=== PATIENT | female | born 1950 | race Caucasian/White ===

== ENCOUNTER 2019-05-25 23:55 | Outpatient (CLI) | payer MEDICARE | END 2019-05-25 23:56 | disposition critical access hospital (66) | LOC: EMS 23:55 | PROVIDERS: ATTEND Surgery | DX: R07.89 Other chest pain (principal); R06.00 Dyspnea, unspecified; R11.0 Nausea | CPT/HCPCS: A0425; A0427 ==

== ENCOUNTER 2019-05-26 00:01 | Observation (INO) | payer MEDICARE ==
--- NOTE | 2019-05-26 00:20 | ED Physician Documentation ---
History of Present Illness - Stated complaint Stated Complaint: CP, NAUSEA - Chief complaint Chief Complaint: Cardiac - Additonal information Additional information: This is a 68-year-old female with a history of atrial fibrillation, HF with unknown EF (She thinks it is poor, she has been told that she needs a defibrillator), pulmonary emboli on Xarelto, who presents with chest pain and shortness of breath. This began in the last day and has been worsening since then. The chest pain is central and achy, it is currently moderate in severity. Her shortness of breath is constant and worse with movement or walking. She always have some shortness of breath, however this is been worsening over the past week Pt states she has been taking her xarelto as prescribed without missing doses. She denies leg swelling. She states that she has never had leg swelling with her heart failure in the past. She is on furosemide 20 mg twice daily and has been taking this reliably. She denies any history of PCI, has had a catheterization at [facility] in [place] around 1 year ago, she is unsure of the results of this. Review of Systems Constitutional: denies: Fever Eyes: denies: Loss of vision Cardiac: reports: Chest pain / pressure Respiratory: reports: Dyspnea GI: denies: Abdominal Pain : denies: Dysuria Skin: denies: Rash Musculoskeletal: denies: Extremity swelling Neurologic: denies: Confused PD PAST MEDICAL HISTORY - Past Medical History Past Medical History: Yes Cardiovascular: Congestive heart failure, Atrial fibrillation Respiratory: Other Other Past Medical History: Hx Lung Clots - Past Surgical History Past Surgical History: Yes General: Cholecystectomy Ortho: Spine surgery - Present Medications Home Medications: Ambulatory Orders Medication Instructions Recorded Confirmed Esomeprazole Magnesium [Nexium 20 mg PO DAILY 05/26/19 05/26/19 24Hr] Furosemide [Lasix] 20 mg PO BID 05/26/19 05/26/19 Losartan [Cozaar] 50 mg PO DAILY 05/26/19 05/26/19 Omeprazole Magnesium [Prilosec] 10 mg PO DAILY 05/26/19 05/26/19 RX: Benzonatate 200 mg PO TID 05/26/19 05/26/19 RX: Carvedilol 3.125 mg PO DAILY 05/26/19 05/26/19 RX: Citalopram [CeleXA] 10 mg PO DAILY 05/26/19 05/26/19 RX: Cyclobenzaprine [Flexeril] 10 mg PO DAILY 05/26/19 05/26/19 RX: Ferrous Sulfate 325 mg PO DAILY 05/26/19 05/26/19 RX: Levothyroxine [Synthroid] 125 mg PO DAILY 05/26/19 05/26/19 RX: Spironolactone 25 mg PO DAILY 05/26/19 05/26/19 Rivaroxaban [Xarelto] 20 mg PO DAILY 05/26/19 05/26/19 - Allergies Allergies/Adverse Reactions: Allergies Allergy/AdvReac Type Severity Reaction Status Date / Time No Known Drug Allergies Allergy Verified 05/26/19 00:04 - Social History Does the pt smoke?: No Smoking Status: Never smoker Does the pt drink ETOH?: No Does the pt have substance abuse?: No - Immunizations Immunizations are current?: Yes - POLST Patient has POLST: No PD ED PE NORMAL - Vitals Vital signs reviewed: Yes - General General: Alert and oriented X 3 - HEENT HEENT: Atraumatic, PERRL - Neck Neck: Supple, no meningeal sign - Cardiac Cardiac: RRR (With some irregular beats, PVCs on the monitor) - Respiratory Respiratory: No respiratory distress, Other (Slight end-expiratory wheeze bilaterally.) - Abdomen Abdomen: Normal bowel sounds, Soft, Non tender, Non distended - Derm Derm: Warm and dry - Extremities Extremities: No deformity, Other (No pitting edema) - Neuro Neuro: Alert and oriented X 3, 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, No motor deficit, No sensory deficit, Normal speech - Psych Psych: Normal mood, Normal affect Results - Vitals Vitals: Vital Signs - 24 hr 05/26/19 05/26/19 05/26/19 00:04 00:14 01:12 Temperature 36.6 C 37 C Heart Rate 109 H 103 H 100 Respiratory 18 20 24 Rate Blood Pressure 138/78 H 138/78 H 134/99 H O2 Saturation 97 97 96 05/26/19 05/26/19 05/26/19 02:24 03:09 04:42 Temperature Heart Rate 92 90 96 Respiratory 22 20 18 Rate Blood Pressure 153/92 H 144/98 H 136/84 H O2 Saturation 95 92 93 Oxygen O2 Source Room air - Labs Labs: Laboratory Tests 05/26/19 05/26/19 05/26/19 00:13 00:13 00:13 WBC 4.9 RBC 4.11 L Hgb 10.6 L Hct 36.7 L MCV 89.3 MCH 25.8 L MCHC 28.9 L RDW 13.7 Plt Count 229 MPV 9.9 Neut # (Auto) 3.1 Lymph # (Auto) 1.1 L Stevens # (Auto) 0.5 Eos # (Auto) 0.1 Baso # (Auto) 0.1 Absolute Nucleated RBC 0.00 Nucleated RBC % 0.0 PT 11.9 INR 1.1 Sodium Potassium Chloride Carbon Dioxide Anion Gap BUN Creatinine Estimated GFR (MDRD) Glucose Calcium Total Bilirubin AST ALT Alkaline Phosphatase Troponin I High Sens B-Natriuretic Peptide 83 Total Protein Albumin Globulin Albumin/Globulin Ratio Lipase 05/26/19 05/26/19 05/26/19 00:13 00:13 03:45 WBC RBC Hgb Hct MCV MCH MCHC RDW Plt Count MPV Neut # (Auto) Lymph # (Auto) Stevens # (Auto) Eos # (Auto) Baso # (Auto) Absolute Nucleated RBC Nucleated RBC % PT INR Sodium 143 Potassium 4.3 Chloride 106 Carbon Dioxide 25 Anion Gap 12.0 BUN 20 Creatinine 0.8 Estimated GFR (MDRD) 72 L Glucose 103 H Calcium 8.6 Total Bilirubin 0.5 AST 26 ALT 27 Alkaline Phosphatase 91 Troponin I High Sens 11.6 11.6 B-Natriuretic Peptide Total Protein 6.9 Albumin 3.5 Globulin 3.4 Albumin/Globulin Ratio 1.0 Lipase 34 - Rads (name of study) CT PE Radiology: Prelim report reviewed (No evidence of pulmonary embolism, no significant pulmonary parenchymal abnormality. Medium to large sliding hiatal and paraesophageal hernia, age-indeterminate mild to moderate compression fracture of T6 and L1. Possible heterogeneous low-density lesions within the liver, with recommended outpatient MRI with and without contrast at 2 weeks) PD MEDICAL DECISION MAKING - ED course Complexity details: considered differential (Pulmonary embolism, heart failure exacerbation, ACS, thorax, pleural effusion, musculoskeletal pain, aortic dissection, anemia) ED course: EKG, my interpretation: Time 00: 03, rate 109, rhythm sinus tachycardia. There is a right bundle branch block, there is no significant ST elevation or depression. There is a T wave inversion in lead III. EKG, my interpretation: Time 3: 39, rate 99, rhythm sinus tachycardia with PVCs. There is a right bundle branch block, there is no significant ST segment elevation or depression. T wave inversion in lead III. No significant change from prior On initial examination patient is in no acute distress, she is tachycardic and hypertensive. EKG shows a right bundle branch block, with unknown chronicity as she has never been seen in our system, but there is no ST segment elevation or depression, or convincing signs of acute ischemia. IV was inserted, labs are drawn, patient was placed on the quality assurance monitor final. She was given 2 mg of morphine for pain, and 4 mg of Zofran for nausea. Labs show anemia of 10.6, no leukocytosis. Abdominal panel is unremarkable. BNP is 83, but this is likely artificially depressed due to patient's large BMI. High-sensitivity troponin is negative at 11.6. Repeat drawn 3 hours later is unchanged. CT PE scan is obtained and shows no signs of pulmonary emboli, it does show some compression fractures of on clear chronicity, patient states she has chronic back pain but does not have specific tenderness and there region of these fractures. It also shows possible heterogeneity of her liver, I explained this to her and that she should get a MRI to follow-up on this finding. On repeat examination patient's chest pain is feeling improved, but it is not resolved. I discussed with her that I do not see signs of pulmonary embolism, or the active acute heart attack at this time, but the fact that she has chest pain and multiple cardiac risk factors makes me think she be best served with admission to the hospital with a cardiology service, particularly given her heart failure and her shortness of breath. She declined transfer, stating that she will stay in this hospital but she would not be transferred elsewhere. She understands that we are limited in our capabilities to perform cardiac interventions at this hospital, and that her work-up would be more limited. She also understands that if she needs a catheterization this could be delayed, and could cause morbidity or mortality, and that both myself and the admitting physician Dr. Freedman would like for her to be admitted to a facility with cardiology. She will be admitted for a echocardiogram, potentially further trending of her troponins, and possible diuresis as she likely has some component of heart failure exacerbation. Her vital signs have remained stable, her heart rate is now in the 90s, and her chest pain is improving but is not absent. Please refer to the admitting service's notes for further hospital course. Departure - Departure Disposition: ED Place in Observation Clinical Impression: Chest pain Qualifiers: Chest pain type: unspecified Qualified Code(s): R07.9 - Chest pain, unspecified Dyspnea Qualifiers: Dyspnea type: shortness of breath Qualified Code(s): R06.02 - Shortness of breath Discharge Date/Time: 05/26/19 06:51
[2019-05-26 00:30] LABS: BASOPHILS # (AUTO) 0.1 10^3/uL (0.0-0.1); BASOPHILS % (AUTO) 1.2 %; EOSINOPHILS # (AUTO) 0.1 10^3/uL (0.0-0.7); EOSINOPHILS % (AUTO) 2.5 %; HGB - HEMOGLOBIN 10.6 g/dL (12.0-16.0); LYMPHOCYTES # (AUTO) 1.1 10^3/uL (1.5-3.5); LYMPHOCYTES % (AUTO) 23.1 %; MEAN CORPUSCULAR HEMOGLOBIN 25.8 pg (27.0-31.0); MEAN CORPUSCULAR HGB CONC 28.9 g/dL (32.0-36.0); MEAN CORPUSCULAR VOLUME 89.3 fL (81.0-99.0); MEAN PLATELET VOLUME 9.9 fL (7.9-10.8); MONOCYTES # (AUTO) 0.5 10^3/uL (0.0-1.0); MONOCYTES % (AUTO) 10.2 %; NEUTROPHILS # (AUTO) 3.1 10^3/uL (1.5-6.6); NEUTROPHILS % (AUTO) 62.6 %; PLT - PLATELET COUNT 229 10^3/uL (130-450); RED BLOOD COUNT 4.11 10^6/uL (4.20-5.40); RED CELL DISTRIBUTION WIDTH 13.7 % (12.0-15.0); WHITE BLOOD COUNT 4.9 x10^3/uL (4.8-10.8)
[2019-05-26 00:35] LABS: ALBUMIN 3.5 g/dL (3.2-5.5); BILIRUBIN,TOTAL 0.5 mg/dL (0.2-1.0); CALCIUM 8.6 mg/dL (8.5-10.3); CREATININE 0.8 mg/dL (0.4-1.0); TOTAL PROTEIN 6.9 g/dL (6.7-8.2)
[2019-05-26 00:36] LABS: INR 1.1 (0.8-1.2); PT - PROTHROMBIN TIME 11.9 secs (9.9-12.6)
[2019-05-26] MEDS ORDERED: IOVERSOL 320 100 ML VIAL IVP ONE ×2 (00:56→01:29)
--- NOTE | 2019-05-26 01:08 | XRAY Report ---
Reason: Chest Pain Procedure Date: 05/26/2019 Accession Number: [id number] / [id number] Procedure: XR - Chest 1 View X-Ray CPT Code: 74447 FULL RESULT: EXAM: CHEST RADIOGRAPHY EXAM DATE: 05/26/2019 12:45 AM. CLINICAL HISTORY: Chest Pain. COMPARISON: None. TECHNIQUE: 1 view. FINDINGS: Lungs/Pleura: No focal opacities evident. No pleural effusion. No pneumothorax. Mediastinum: Large hiatal hernia. No cardiomegaly. Other: None. IMPRESSION: Large hiatal hernia. No evidence of acute cardiopulmonary disease. RADIA
[2019-05-26] MEDS ORDERED: ONDANSETRON 4 MG/2 ML VIAL IVP STA (02:09)
[2019-05-26] MEDS ORDERED: MORPHINE 2 MG/ML CARPUJECT IVP STA ×2 (02:09→06:21)
--- NOTE | 2019-05-26 02:09 | CT Report ---
Reason: Please eval for PE - CP and SOB, hx PE Procedure Date: 05/26/2019 Accession Number: [id number] / [id number] Procedure: CT - ANGIO CHEST W/WO CPT Code: FULL RESULT: EXAM: CT ANGIOGRAM CHEST EXAM DATE: 05/26/2019 01:31 AM CLINICAL HISTORY: Chest pain and shortness of breath. COMPARISON: None. TECHNIQUE: Routine helical imaging was performed through the chest in the pulmonary arterial phase. IV Contrast: 80 mL Optiray 320. Reconstructions: Coronal 3D MIP reconstructions. Sagittal and coronal. In accordance with CT protocol optimization, one or more of the following dose reduction techniques were utilized for this exam: automated exposure control, adjustment of mA and/or KV based on patient size, or use of iterative reconstructive technique. FINDINGS: Pulmonary Arteries: There is adequate opacification up to the segmental arteries. No main, lobar, or segmental pulmonary embolism noted. Lungs and Pleura: No significant consolidation. Central Airways: Visualized central airways are without suspicious filling defects. Chest Wall: No significant abnormality. Thyroid: No significant abnormality. Mediastinum: No significant abnormality. Heart: Normal in size. No significant pericardial effusion. Aorta: Normal caliber. Moderate aortic atherosclerosis. Upper Abdomen: There is a medium to large sized sliding hiatal and paraesophageal hernia. Prior cholecystectomy. Artifact versus subtle heterogeneous low-density abnormalities within the posterior portion of the liver measuring 4.1 cm within the posteromedial subcapsular portion of segment-7/6 (image 114 series 4) and another rounded such abnormality laterally within the liver segment-7/6 measuring 2.4 cm (image 118 series 4). Bones: No suspicious bony lesions evident. However, bones are at least moderately osteopenic. This reduces exam sensitivity and specificity for detection of subtle bony lesions and/or fractures. Age-indeterminate mild inferior endplate compression fracture of L1 vertebral body is noted. Mild compression deformity of T6 vertebral body is also present of undetermined age. IMPRESSION: 1. No main, lobar, or segmental pulmonary embolism. 2. No significant pulmonary parenchymal abnormality. 3. Medium to large sliding hiatal and paraesophageal hernia. 4. Age-indeterminate mild to moderate compression fracture of T6. Age-indeterminate mild inferior endplate compression fracture of L1. 5. Artifact versus subtle heterogeneous low-density lesions within the posterior portion of the liver. Considering large body habitus, ultrasound is of doubtful clinical benefit. Further assessment recommended with a nonemergent outpatient liver MRI without and with contrast at 2 weeks. RADIA
[2019-05-26] MEDS ORDERED: SODIUM CHLORIDE FLUSH 0.9% 10 ML SYRINGE IVP PRN (06:03)
[2019-05-26] MEDS ORDERED: MORPHINE 2 MG/ML CARPUJECT IVP PRN (06:03)
[2019-05-26] MEDS ORDERED: FUROSEMIDE 20 MG/2 ML VIAL IVP STA (06:13)
[2019-05-26] MEDS ORDERED: FUROSEMIDE 20 MG/2 ML VIAL IVP SCH (06:13)
--- NOTE | 2019-05-26 06:28 | HISTORY & PHYSICAL EXAMINATION ---
Chief Complaint - Chief Complaint Chief Complaint: chest pain, dyspnea History of Present Illness - Admitted From Admitted From:: [facility] ED - History Obtained From Records Reviewed: yes History obtained from: patient - History of Present Illness HPI Comment/Other: Patient seen on 05/26/19 at 05:45am Patient is a 68 y/o female with Hx of atrial fibrillation s/p ablation approximately 1 yr ago, hx of PE on xarelto, HTN, CHF, Hypothyroidism who presented to the ED with complain of dyspnea and a substernal chest pressure. Onset was around 10pm on 05/25/19 while she was asleep. She called EMS around midnight. It was reported by EMS that the patient was in Atrial fibrillation with rvr but upon presentation to the ED she was sinus with mild tachycardia. She reports no relief of her chest pressure with nitroglycerin but reports improvement with morphine. She denied abdominal pain, or vomiting. She reports nausea and sweating. She has been living in [place] for about 2 months now. She is originally from [facility] however her son recently took a job in [place] so she is in [place] to be closer to them. She reports have a stress test 1 yr ago which was followed by a cardiac cath which was unremarkable. However she does not know the specifics During exam she would occasionally have PVC's and short runs of vtach. She also adds that she has been feeling more bloated lately and has gained more weight. As a result of the above she is being admitted for further evaluation. 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 She denies tobacco or illicit drug use but reports occasional alcohol use - POLST Patient has POLST: No POLST Status: Full Code Meds/Allgy - Home Medications Home Medications: Ambulatory Orders Medication Instructions Recorded Confirmed Benzonatate 200 mg PO TID 05/26/19 05/26/19 Carvedilol 3.125 mg PO DAILY 05/26/19 05/26/19 Citalopram [CeleXA] 10 mg PO DAILY 05/26/19 05/26/19 Cyclobenzaprine [Flexeril] 10 mg PO DAILY 05/26/19 05/26/19 Esomeprazole Magnesium [Nexium 20 mg PO DAILY 05/26/19 05/26/19 24Hr] Ferrous Sulfate 325 mg PO DAILY 05/26/19 05/26/19 Furosemide [Lasix] 20 mg PO BID 05/26/19 05/26/19 Levothyroxine [Synthroid] 125 mg PO DAILY 05/26/19 05/26/19 Losartan [Cozaar] 50 mg PO DAILY 05/26/19 05/26/19 Omeprazole Magnesium [Prilosec] 10 mg PO DAILY 05/26/19 05/26/19 Rivaroxaban [Xarelto] 20 mg PO DAILY 05/26/19 05/26/19 Spironolactone 25 mg PO DAILY 05/26/19 05/26/19 - Allergies Allergies/Adverse Reactions: Allergies Allergy/AdvReac Type Severity Reaction Status Date / Time No Known Drug Allergies Allergy Verified 05/26/19 00:04 Review of Systems - Constitutional Constitutional: reports: Poor appetite, Diaphoresis. denies: Fatigue, Fever, Chills - Eyes Eyes: denies: Amaurosis, Blurred vision, Vision loss, Dipolpia - Ears, Nose & Throat Ears, Nose & Throat: denies: Nasal pain, Sore throat, Hoarseness - Cardiovascular Cariovascular: reports: Chest pain. denies: Irregular heart rate, Edema, Lightheadedness, Syncope, Exertional dyspnea, Decr. exercise tolerance - Respiratory Respiratory: reports: SOB at rest, SOB with exertion. denies: Cough, Sputum production, Wheezing - Gastrointestinal Gastrointestinal: reports: Nausea, Reflux/heartburn. denies: Abdominal pain, Abdominal distention, Constipation, Diarrhea, Vomiting - Genitourinary Genitourinary: denies: Dysuria, Frequency, Urgency, Hematuria - Musculoskeletal Musculoskeletal: denies: Muscle pain, Back pain, Muscle aches - Integumentary Integumentary: denies: Rash, Pruritis, Lesions - Neurological Neurological: denies: General weakness, Focal weakness, Headache, Dizziness - Psychiatric Psychiatric: reports: Depression - Endocrine Endocrine: denies: Polyuria, Polydypsia - Hematologic/Lymphatic Hematologic/Lymphatic: denies: Anemia, Bruising, Petechiae Prior Level of Functionality: She is independent of activities of daily living Exam - Vital Signs Vital Signs: Vital Signs x48h Temp Pulse Resp BP Pulse Ox 05/26/19 04:42 96 18 136/84 H 93 05/26/19 03:09 90 20 144/98 H 92 05/26/19 02:24 92 22 153/92 H 95 05/26/19 01:12 37 C 100 24 134/99 H 96 05/26/19 00:14 103 H 20 138/78 H 97 05/26/19 00:04 36.6 C 109 H 18 138/78 H 97 - Physical Exam General Appearance: positive: Moderate distress Eyes Bilateral: positive: Normal inspection, PERRL, EOMI ENT: positive: ENT inspection nml, No signs of dehydration Neck: positive: Nml inspection, No JVD, Trachea midline Respiratory: positive: Chest non-tender. negative: Wheezes, Rales, Rhonchi Cardiovascular: positive: No murmur, Tachycardia Abdomen: positive: Non-tender, No organomegaly, Nml bowel sounds, No distention. negative: Guarding, Rebound Back: positive: Nml inspection Skin: positive: Color nml, No rash, Warm Extremities: positive: Non-tender, Full ROM, Nml appearance, No pedal edema Neurologic/Psychiatric: positive: Oriented x3, CN's nml (2-12), Motor nml, Sensation nml, Mood/affect nml Conclusion/Plan - Problem List (1) Chest pain Conclusion/Plan: ?2/2 Afib w/ rvr vs CAD Complete trending troponin 2D echo ordered. Patient on xarelto, carvedilol. Will add aspirin Qualifiers: Chest pain type: unspecified Qualified Code(s): R07.9 - Chest pain, unspecified (2) Atrial fibrillation Conclusion/Plan: s/p ablation 1 yr ago Currently sinus rythm with mild tachycardia Will continue carvedilol. 2D echo pending Qualifiers: Atrial fibrillation type: chronic Qualified Code(s): I48.2 - Chronic atrial fibrillation (3) CHF (congestive heart failure) Conclusion/Plan: Clinical picture not consistent with exacerbation Will give 1 dose of lasix 20mg IV, the resume her home lasix dose. Continue spironolactone and carvedilol 2D echo pending. Daily weights (4) Hypothyroidism Conclusion/Plan: On synthroid (5) Hypertension Conclusion/Plan: On losartan and carvedilol (6) Hx of pulmonary embolus Conclusion/Plan: CT Angio chest showed no PE Patient on xarelto (7) Depression Conclusion/Plan: On citalopram (8) GERD (gastroesophageal reflux disease) Conclusion/Plan: On omeprazole. - Lab Results Fish Bones: 05/26/19 00:13 05/26/19 00:13 Core Measures - Anticipated LOS I expect patient to be DC'd or transferred within 96 hours.: Yes - DVT/VTE - Prophylaxis VTE/DVT Device ordered at admit?: Yes VTE/DVT Prophylaxis med ordered at admit?: Yes
[2019-05-26] MEDS: POLYETHYLENE GLYCOL 3350 17 GM PACKET PO SCH (08:27)
[2019-05-26] MEDS: MORPHINE 2 MG/ML CARPUJECT IVP PRN ×3 (08:46→23:58)
[2019-05-26] MEDS: SODIUM CHLORIDE FLUSH 0.9% 10 ML SYRINGE IVP SCH ×3 (08:47→23:45)
[2019-05-26] MEDS ORDERED: SODIUM CHLORIDE FLUSH 0.9% 10 ML SYRINGE IVP SCH (09:00)
[2019-05-26] MEDS ORDERED: POLYETHYLENE GLYCOL 3350 17 GM PACKET PO SCH (09:00)
--- NOTE | 2019-05-26 12:51 | PROVIDER PROGRESS NOTE ---
Assessment/Plan - Problem List (1) Acute on chronic diastolic CHF (congestive heart failure), NYHA class 4 Assessment/Plan: Old records were obtained from [facility] [facility] She had chronic systolic heart failure, alcohol induced, was started on carvedilol, LASHA inhibitor and spironolactone. The echo done here shows normalized LVEF but she has diastolic dysfunction. Her orthopnea is likely from volume overload of diastolic dysfunction. Continue with twice daily Lasix. Continue with Coreg but at a higher dose, since it should be dosed twice daily not daily. Continue Spironolactone and LASHA. Will assess for home oxygen, walking oximetry test before discharge tomorrow Was all explained to the patient. (2) Atypical chest pain Assessment/Plan: Her pain was not improved with nitroglycerin. She needed morphine. Old records indicated she had this type of pain before and it was felt to be "GI origin". Her imaging shows a hiatal hernia which will be treated as for GERD. The old records also show that she had stress testing in April 2018, this was abnormal, it led to a coronary angiogram, which showed normal coronary arteries but the cardiomyopathy was found (3) Hiatal hernia Assessment/Plan: Will add Pepcid to her Nexium which apparently is not controlling her symptoms (4) History of alcoholic cardiomyopathy Assessment/Plan: This was determined when records were obtained from [facility] [facility] The echo today however shows improvement of EF from 35% to the normal systolic range of 60%. The patient admits that she stopped alcohol binging several months ago and has been compliant with her carvedilol. Continue with carvedilol, LASHA inhibitor, spironolactone (5) S/P ablation of atrial fibrillation Assessment/Plan: She remains on Xarelto which will be continued (6) Hx of deep venous thrombosis Assessment/Plan: As per old outside records (7) Hypothyroidism Assessment/Plan: Will check TSH, to confirm good thyroid dose (8) Depression Assessment/Plan: Continue her antidepressant while (9) Iron deficiency anemia Assessment/Plan: Continue her iron replacement - Current Meds Current Meds: Current Medications Generic Name Dose Route Start Last Admin Trade Name Freq PRN Reason Stop Dose Admin Morphine Sulfate 2 mg 05/26/19 07:13 05/26/19 08:46 Morphine (Carpuject) IVP 2 mg Q4HR PRN Administration Pain 8 to 10 Polyethylene Glycol 17 gm 05/26/19 09:00 05/26/19 08:27 Miralax PO Not Given DAILY [facility] Sodium Chloride 10 ml 05/26/19 09:00 05/26/19 08:47 Normal Saline Flush 0.9% IVP 10 ml 0100,0900,1700 CELSO Administration - Lab Result Fish Bone Diagrams: 05/26/19 00:13 05/26/19 00:13 - Additional Planning My Orders: My Active Orders 05/26/19 13:00 Esomeprazole Magnesium [Nexium 24Hr] 20 mg PO DAILY Famotidine [Pepcid] 20 mg PO BID Ferrous Sulfate [Feosol] 325 mg PO DAILY Spironolactone [Aldactone] 25 mg PO DAILY 05/26/19 14:00 Furosemide [Lasix] 20 mg PO 1400 05/26/19 18:00 Rivaroxaban [Xarelto] 20 mg PO 1800 05/26/19 21:00 Carvedilol [Coreg] 6.25 mg PO BID 05/26/19 Lunch DIET [Regular Diet] [DIET] 05/27/19 09:00 Citalopram [CeleXA] 10 mg PO DAILY Losartan [Cozaar] 50 mg PO DAILY Objective Vital Signs: Vital Signs - 24 hr 05/26/19 05/26/19 05/26/19 00:04 00:14 01:12 Temperature 36.6 C 37 C Heart Rate 109 H 103 H 100 Heart Rate [ Brachial] Respiratory 18 20 24 Rate Blood Pressure 138/78 H 138/78 H 134/99 H Blood Pressure [Left Brachial artery] O2 Saturation 97 97 96 05/26/19 05/26/19 05/26/19 02:24 03:09 04:42 Temperature Heart Rate 92 90 96 Heart Rate [ Brachial] Respiratory 22 20 18 Rate Blood Pressure 153/92 H 144/98 H 136/84 H Blood Pressure [Left Brachial artery] O2 Saturation 95 92 93 05/26/19 05/26/19 05/26/19 06:19 07:05 11:21 Temperature 36.9 C 36.9 C Heart Rate 95 Heart Rate [ 98 98 Brachial] Respiratory 20 18 18 Rate Blood Pressure 153/78 H Blood Pressure 146/86 H 144/64 H [Left Brachial artery] O2 Saturation 92 98 99 Oxygen O2 Source Nasal cannula I&O (Last 24 Hrs): Intake and Output Totals x24h 05/24/19 05/25/19 05/26/19 23:59 23:59 23:59 Intake Total 120 Balance 120 General: Alert, Oriented x3 HEENT: Mucous membr. moist/pink Neck: Supple, No JVD Neuro: Non Focal Cardiovascular: Regular rate, No murmurs Respiratory: No respiratory distress Abdomen: Soft Extremities: No edema - Results Results: Laboratory Results WBC 4.9 x10^3/uL (4.8-10.8) 05/26/19 00:13 RBC 4.11 10^6/uL (4.20-5.40) L 05/26/19 00:13 Hgb 10.6 g/dL (12.0-16.0) L 05/26/19 00:13 Hct 36.7 % (37.0-47.0) L 05/26/19 00:13 MCV 89.3 fL (81.0-99.0) 05/26/19 00:13 MCH 25.8 pg (27.0-31.0) L 05/26/19 00:13 MCHC 28.9 g/dL (32.0-36.0) L 05/26/19 00:13 RDW 13.7 % (12.0-15.0) 05/26/19 00:13 Plt Count 229 10^3/uL (130-450) 05/26/19 00:13 MPV 9.9 fL (7.9-10.8) 05/26/19 00:13 Neut # (Auto) 3.1 10^3/uL (1.5-6.6) 05/26/19 00:13 Lymph # (Auto) 1.1 10^3/uL (1.5-3.5) L 05/26/19 00:13 Hickman # (Auto) 0.5 10^3/uL (0.0-1.0) 05/26/19 00:13 Eos # (Auto) 0.1 10^3/uL (0.0-0.7) 05/26/19 00:13 Baso # (Auto) 0.1 10^3/uL (0.0-0.1) 05/26/19 00:13 Absolute Nucleated RBC 0.00 x10^3/uL 05/26/19 00:13 Nucleated RBC % 0.0 /100WBC 05/26/19 00:13 PT 11.9 secs (9.9-12.6) 05/26/19 00:13 INR 1.1 (0.8-1.2) 05/26/19 00:13 Sodium 143 mmol/L (135-145) 05/26/19 00:13 Potassium 4.3 mmol/L (3.5-5.0) 05/26/19 00:13 Chloride 106 mmol/L (101-111) 05/26/19 00:13 Carbon Dioxide 25 mmol/L (21-32) 05/26/19 00:13 Anion Gap 12.0 (6-13) 05/26/19 00:13 BUN 20 mg/dL (6-20) 05/26/19 00:13 Creatinine 0.8 mg/dL (0.4-1.0) 05/26/19 00:13 Estimated GFR (MDRD) 72 (>89) L 05/26/19 00:13 Glucose 103 mg/dL (70-100) H 05/26/19 00:13 Calcium 8.6 mg/dL (8.5-10.3) 05/26/19 00:13 Total Bilirubin 0.5 mg/dL (0.2-1.0) 05/26/19 00:13 AST 26 IU/L (10-42) 05/26/19 00:13 ALT 27 IU/L (10-60) 05/26/19 00:13 Alkaline Phosphatase 91 IU/L (42-121) 05/26/19 00:13 Troponin I High Sens 10.9 pg/mL (2.3-14.8) 05/26/19 09:25 B-Natriuretic Peptide 83 pg/mL (5-100) 05/26/19 00:13 Total Protein 6.9 g/dL (6.7-8.2) 05/26/19 00:13 Albumin 3.5 g/dL (3.2-5.5) 05/26/19 00:13 Globulin 3.4 g/dL (2.1-4.2) 05/26/19 00:13 Albumin/Globulin Ratio 1.0 (1.0-2.2) 05/26/19 00:13 Lipase 34 U/L (22-51) 05/26/19 00:13
[2019-05-26] MEDS: PANTOPRAZOLE 40 MG TABLET PO SCH (13:32)
[2019-05-26] MEDS: SPIRONOLACTONE 25 MG TABLET PO SCH (13:44)
[2019-05-26] MEDS: FAMOTIDINE 20 MG TABLET PO SCH (13:44)
[2019-05-26] MEDS ORDERED: FUROSEMIDE 20 MG TABLET PO SCH (14:00)
[2019-05-26] MEDS: FERROUS SULFATE 325 MG TABLET PO SCH (16:49)
[2019-05-26] MEDS ORDERED: RIVAROXABAN 10 MG TABLET PO SCH (17:00)
[2019-05-26] MEDS: SODIUM CHLORIDE FLUSH 0.9% 10 ML SYRINGE IVP PRN ×2 (20:00→23:58)
[2019-05-26] MEDS: CARVEDILOL 3.125 MG TABLET PO SCH (20:01)
[2019-05-27] MEDS: SODIUM CHLORIDE FLUSH 0.9% 10 ML SYRINGE IVP PRN (04:49)
[2019-05-27] MEDS: MORPHINE 2 MG/ML CARPUJECT IVP PRN ×2 (04:49→10:50)
[2019-05-27] MEDS: PANTOPRAZOLE 40 MG TABLET PO SCH (06:27)
[2019-05-27] MEDS ORDERED: LOSARTAN 50 MG TABLET PO SCH (09:00)
[2019-05-27] MEDS ORDERED: CITALOPRAM 10 MG TABLET PO SCH (09:00)
[2019-05-27] MEDS: POLYETHYLENE GLYCOL 3350 17 GM PACKET PO SCH (10:45)
[2019-05-27] MEDS: FERROUS SULFATE 325 MG TABLET PO SCH (10:46)
[2019-05-27] MEDS: CARVEDILOL 3.125 MG TABLET PO SCH (10:46)
[2019-05-27] MEDS: SPIRONOLACTONE 25 MG TABLET PO SCH (10:46)
[2019-05-27] MEDS: FAMOTIDINE 20 MG TABLET PO SCH (10:46)
[2019-05-27] MEDS: SODIUM CHLORIDE FLUSH 0.9% 10 ML SYRINGE IVP SCH (10:47)
--- NOTE | 2019-05-27 11:30 | Discharge Plan ---
Discharge Plan Problem Reviewed?: Yes Disposition: Home, Self Care Condition: Stable Prescriptions: Carvedilol 9.375 mg PO BID #180 tablet Diet: Cardiac Activity Restrictions: Activity as Tolerated Shower Restrictions: No Instruction Topics: Heart Failure Tracking Weight, Heart Failure Diet Changes Health Concerns: Admitted with shortness of breath and chest heaviness. Fluid overload and fast heart rate found and medications adjusted. A large sliding hiatal hernia is the likely cause of the chest pressure. Plan of Treatment: Restrict your fluid intake to 1.5 quarts daily maximum, and increase Coreg dose (new prescription e-sent to your [facility] pharmacy). All other medications should continue as prescribed. See a PCP and possibly get a referral to Gastroenterology, regarding the large hiatal hernia. Care Goals: Improve activity tolerance and lessen shortness of breath. CHF Rehab was ordered, you qualify. Establish with a new Primary Care Provider. Assessment: The patient is in agreement with the plan. Additional Instructions or Follow Up instructions: Your CT scan did show possible spot on your liver, It is recommend that you get an MRI performed in 2 weeks. Please see your primary care provider to schedule this. Follow-Up Care: [facility] - CHF Classes No Smoking: If you smoke, Please STOP! Call for help. Follow-up with: Provider,Other [Primary Care Provider] -
[2019-05-27 16:40] VITALS: BP 119/72
--- NOTE | 2019-05-27 17:28 | PROVIDER PROGRESS NOTE ---
Assessment/Plan - Problem List (1) Acute on chronic diastolic CHF (congestive heart failure), NYHA class 4 Assessment/Plan: Old records were obtained from [facility]: She had chronic systolic heart failure, alcohol induced, was started on Carvedilol, LASHA inhibitor and spironolactone. The Echo done here shows normalized LVEF but she has diastolic dysfunction. Her orthopnea is likely from volume overload of diastolic dysfunction. Continue with daily Lasix. Continue with Coreg but at a higher dose, since it should be dosed twice daily not daily, and since she is tachycardic with walking, will increase to 9.375 po bid. Continue Spironolactone and LASHA. Assessment for home oxygen with a walking oximetry test showed no desats below 92% on R.A. She is ready for [facility] today. Outpatient CHF classes at the [facility] were ordered. (2) Atypical chest pain Assessment/Plan: Her pain was not improved with nitroglycerin. She needed morphine. The old records also show that she had stress testing in April 2018, this was abnormal, it led to a coronary angiogram, which showed normal coronary arteries but the cardiomyopathy was found. Old records indicated she had this type of pain before and it was felt to be "GI origin". Her imaging done here showed a large sliding hiatal hernia. Her Nexium should continue and elective surgery could be considered, this was discussed with the patient. (3) Hiatal hernia Assessment/Plan: Continue treating for GERD and consider elective surgery. (4) History of alcoholic cardiomyopathy Assessment/Plan: This was determined when records were obtained from [facility]. The echo today however shows improvement of EF from 35% to the normal systolic range of 60%. The patient admits that she stopped alcohol binging several months ago and has been compliant with her carvedilol. Continue with (higher dose of) Carvedilol, and daily LASHA inhibitor,Lasix and Spironolactone (5) S/P ablation of atrial fibrillation Assessment/Plan: She remains on Xarelto which will be continued (6) Hx of deep venous thrombosis Assessment/Plan: This is per records obtained from [facility]. She remains on Xarelto which will be continued (7) Hypothyroidism Assessment/Plan: The TSH level was at the upper limit of acceptable. Perhaps an out patient trivial increase in dose could be done and TSH followed. (8) Depression Assessment/Plan: Continued her psych meds while here (9) Iron deficiency anemia Assessment/Plan: Continued her Iron replacement while here. - Lab Result Fish Bone Diagrams: 05/26/19 00:13 05/26/19 00:13 - Additional Planning My Orders: My Active Orders 05/27/19 Evaluate and Treat PT [PT] Routine 05/27/19 09:05 Oxygen Desat. Study w/Exercise [RC] .ONCE 05/27/19 11:40 Discharge [RC] .ONCE Initiate Discharge Checklist [RC] .ONCE Subjective - Subjective Patient Reports: Feeling Better, Resting Comfortably, Other (Was able to lie flat to sleep) Objective Vital Signs: Vital Signs - 24 hr 05/26/19 05/26/19 05/27/19 19:55 23:42 04:30 Temperature 36.9 C 36.6 C 36.7 C Heart Rate Heart Rate [ 106 H 90 94 Brachial] Heart Rate [ Sitting] Respiratory 18 18 16 Rate Blood Pressure 148/85 H 116/72 124/81 H [Left Brachial artery] Blood Pressure [Sitting] O2 Saturation 96 94 94 05/27/19 05/27/19 05/27/19 04:49 07:38 10:10 Temperature 36.6 C 36.6 C Heart Rate 90 Heart Rate [ 87 Brachial] Heart Rate [ 91 Sitting] Respiratory 18 13 Rate Blood Pressure [Left Brachial artery] Blood Pressure 119/72 [Sitting] O2 Saturation 94 93 Oxygen O2 Source Room air I&O (Last 24 Hrs): Intake and Output Totals x24h 05/25/19 05/26/19 05/27/19 23:59 23:59 23:59 Intake Total 440 150 Output Total 950 150 Balance -510 0 General: Alert, Oriented x3 HEENT: Mucous membr. moist/pink Neck: No JVD Neuro: Non Focal Cardiovascular: Regular rate, No murmurs Respiratory: No respiratory distress Abdomen: Soft, Other (Obese with pannus) Extremities: No edema - Results Results: Laboratory Results WBC 4.9 x10^3/uL (4.8-10.8) 05/26/19 00:13 RBC 4.11 10^6/uL (4.20-5.40) L 05/26/19 00:13 Hgb 10.6 g/dL (12.0-16.0) L 05/26/19 00:13 Hct 36.7 % (37.0-47.0) L 05/26/19 00:13 MCV 89.3 fL (81.0-99.0) 05/26/19 00:13 MCH 25.8 pg (27.0-31.0) L 05/26/19 00:13 MCHC 28.9 g/dL (32.0-36.0) L 05/26/19 00:13 RDW 13.7 % (12.0-15.0) 05/26/19 00:13 Plt Count 229 10^3/uL (130-450) 05/26/19 00:13 MPV 9.9 fL (7.9-10.8) 05/26/19 00:13 Neut # (Auto) 3.1 10^3/uL (1.5-6.6) 05/26/19 00:13 Lymph # (Auto) 1.1 10^3/uL (1.5-3.5) L 05/26/19 00:13 Forrest # (Auto) 0.5 10^3/uL (0.0-1.0) 05/26/19 00:13 Eos # (Auto) 0.1 10^3/uL (0.0-0.7) 05/26/19 00:13 Baso # (Auto) 0.1 10^3/uL (0.0-0.1) 05/26/19 00:13 Absolute Nucleated RBC 0.00 x10^3/uL 05/26/19 00:13 Nucleated RBC % 0.0 /100WBC 05/26/19 00:13 PT 11.9 secs (9.9-12.6) 05/26/19 00:13 INR 1.1 (0.8-1.2) 05/26/19 00:13 Sodium 143 mmol/L (135-145) 05/26/19 00:13 Potassium 4.3 mmol/L (3.5-5.0) 05/26/19 00:13 Chloride 106 mmol/L (101-111) 05/26/19 00:13 Carbon Dioxide 25 mmol/L (21-32) 05/26/19 00:13 Anion Gap 12.0 (6-13) 05/26/19 00:13 BUN 20 mg/dL (6-20) 05/26/19 00:13 Creatinine 0.8 mg/dL (0.4-1.0) 05/26/19 00:13 Estimated GFR (MDRD) 72 (>89) L 05/26/19 00:13 Glucose 103 mg/dL (70-100) H 05/26/19 00:13 Calcium 8.6 mg/dL (8.5-10.3) 05/26/19 00:13 Total Bilirubin 0.5 mg/dL (0.2-1.0) 05/26/19 00:13 AST 26 IU/L (10-42) 05/26/19 00:13 ALT 27 IU/L (10-60) 05/26/19 00:13 Alkaline Phosphatase 91 IU/L (42-121) 05/26/19 00:13 Troponin I High Sens 10.9 pg/mL (2.3-14.8) 05/26/19 09:25 B-Natriuretic Peptide 83 pg/mL (5-100) 05/26/19 00:13 Total Protein 6.9 g/dL (6.7-8.2) 05/26/19 00:13 Albumin 3.5 g/dL (3.2-5.5) 05/26/19 00:13 Globulin 3.4 g/dL (2.1-4.2) 05/26/19 00:13 Albumin/Globulin Ratio 1.0 (1.0-2.2) 05/26/19 00:13 Lipase 34 U/L (22-51) 05/26/19 00:13 TSH 5.65 uIU/mL (0.34-5.60) H 05/26/19 09:28
== END 2019-05-27 13:25 | disposition home or self-care (01) ==
LOC: ED 00:01 → MS2 06:03 → ED 06:51
PROVIDERS: ADMIT Internal Medicine; ATTEND Internal Medicine
DX: R07.2 Precordial pain (principal); R11.0 Nausea; I11.0 Hypertensive heart disease with heart failure; I50.43 Acute on chronic combined systolic (congestive) and diastolic (congestive) heart failure; I42.6 Alcoholic cardiomyopathy; I47.2 Ventricular tachycardia; I49.3 Ventricular premature depolarization; I45.10 Unspecified right bundle-branch block; K44.9 Diaphragmatic hernia without obstruction or gangrene; K21.9 Gastro-esophageal reflux disease without esophagitis; D50.9 Iron deficiency anemia, unspecified; G89.29 Other chronic pain; M54.9 Dorsalgia, unspecified; R93.2 Abnormal findings on diagnostic imaging of liver and biliary tract; E03.9 Hypothyroidism, unspecified; F32.9 Major depressive disorder, single episode, unspecified; Z86.711 Personal history of pulmonary embolism; Z79.01 Long term (current) use of anticoagulants; Z79.899 Other long term (current) drug therapy; Z86.79 Personal history of other diseases of the circulatory system; Z87.898 Personal history of other specified conditions
CPT/HCPCS: 36415; 71045; 71275; 83690; 83880; 84484; 85610; 93005; 93306; 96374; 96375; 96376; 97161; 99284; 99285; A9270; G0378; Q9967; 80053; 84443; 85025